=== PATIENT | female | born 1950 | race Caucasian/White ===

== ENCOUNTER 2020-01-26 14:49 | Emergency (ER) | payer MEDICARE, OTHER ==
[~2020-01-26] VITALS: Ht 165.1 cm; Wt 58.1 kg
--- NOTE | 2020-01-26 14:54 | ED Syncope ---
General Stated Complaint: SYNCOPE; HEAD INJ Source of Information: Patient Exam Limitations: No Limitations History of Present Illness Date Seen by Provider: Jan 26, 2020 Time Seen by Provider: 14:53 Initial Comments 69 y/o female presents w an episode of passing out today, fell and hit back of her head. Patient states she was doing her hair around 2 o'clock, with her hands raised over her head and she started to feel lightheaded and had some visual changes. She remembers leaning forward to get it to stop but then the next thing she remembers she was awaking on the floor with her head hurting. He denied any preceding chest pain, palpitations, rapid or irregular heartbeat. Denies any preceding shortness of air, his feeling of lightheadedness. Intermittent light headedness has been occurring for several months. Worse w exertional activity, she is actually modified her exercise routine. Patient has seen her primary care physician who ordered a stress thallium test which was resulted as normal recently. She was done at [facility] Current Symptoms: No Blurred Vision, No Chest Pain, No Diaphoresis, No Dizziness; Headache, Injury; No Motionless, No Nausea, No Pale, No Shallow/Rapid Breathing, No Weak/Absent Pulse; Weakness Allergies and Home Medications Allergies Coded Allergies: erythromycin base (Unverified Adverse Reaction, Mild, hives, 01/26/20) Home Medications Alendronate Sodium 70 Mg Tablet, 70 MG PO WEEK, (Reported) Patient Home Medication List Home Medication List Reviewed: Yes Review of Systems Constitutional: No chills; dizziness; No fever; malaise; No weakness EENTM: blurred vision (prior to syncopal episode) Respiratory: No cough, No short of breath Cardiovascular: No chest pain, No edema, No palpitations; syncope; No vascular heart diseas Gastrointestinal: No abdominal pain, No constipation, No diarrhea, No nausea, No vomiting Genitourinary: No dysuria, No frequency, No hematuria Musculoskeletal: back pain; No joint pain, No neck pain Skin: No change in color, No lesions; lumps (back of head) Psychiatric/Neurological: Headache; Denies Numbness, Denies Paresthesia, Denies Pre-Existing Deficit, Denies Seizure, Denies Tingling, Denies Tremors, Denies Weakness Past Lzljizn-Ixzles-Xjfyll Hx Past Med/Social Hx: Reviewed Nursing Past Med/Soc Hx Physical Exam Vital Signs Vital Signs - First Documented 01/26/20 14:55 Temp 36.1 Pulse 74 Resp 16 B/P (MAP) 172/68 (102) Pulse Ox 99 O2 Delivery Room Air Capillary Refill : Height, Weight, BMI Height: '" Weight: lbs. oz. kg; BMI Method: General Appearance: No Apparent Distress, WD/WN HEENT: PERRL/EOMI, Normal ENT Inspection, Pharynx Normal, Other (large hematoma occiput) Neck: Full Range of Motion, Normal Inspection, Non Tender, Supple Cardiovascular: Regular Rate, Rhythm, No Edema, No Gallop Respiratory: Chest Non Tender, Lungs Clear, Normal Breath Sounds Gastrointestinal: Normal Bowel Sounds, No Pulsatile Mass, Non Tender, Soft Back: Normal Inspection, No CVA Tenderness, No Vertebral Tenderness, Other (tenderness soft tissue- thoracic paraspinal and post ribs (5-10). NO pain w lateral rib compression, no scapular, shoulder or AC tenderness) Progress/Results/Core Measures Results/Orders Lab Results Laboratory Tests Test 01/26/20 15:15 01/26/20 15:25 Range/Units White Blood Count 7.6 4.3-11.0 10^3/uL Red Blood Count 4.33 L 4.35-5.85 10^6/uL Hemoglobin 12.0 11.5-16.0 G/DL Hematocrit 36 35-52 % Mean Corpuscular Volume 84 80-99 FL Mean Corpuscular Hemoglobin 28 25-34 PG Mean Corpuscular Hemoglobin Concent 33 32-36 G/DL Red Cell Distribution Width 13.6 10.0-14.5 % Platelet Count 232 130-400 10^3/uL Mean Platelet Volume 10.6 H 7.4-10.4 FL Neutrophils (%) (Auto) 67 42-75 % Lymphocytes (%) (Auto) 21 12-44 % Monocytes (%) (Auto) 10 0-12 % Eosinophils (%) (Auto) 2 0-10 % Basophils (%) (Auto) 0 0-10 % Neutrophils # (Auto) 5.1 1.8-7.8 X 10^3 Lymphocytes # (Auto) 1.6 1.0-4.0 X 10^3 Monocytes # (Auto) 0.8 0.0-1.0 X 10^3 Eosinophils # (Auto) 0.1 0.0-0.3 10^3/uL Basophils # (Auto) 0.0 0.0-0.1 10^3/uL Sodium Level 138 135-145 MMOL/L Potassium Level 4.0 3.6-5.0 MMOL/L Chloride Level 102 98-107 MMOL/L Carbon Dioxide Level 26 21-32 MMOL/L Anion Gap 10 5-14 MMOL/L Blood Urea Nitrogen 22 H 7-18 MG/DL Creatinine 0.84 0.60-1.30 MG/DL Estimat Glomerular Filtration Rate > 60 BUN/Creatinine Ratio 26 Glucose Level 159 H 70-105 MG/DL Calcium Level 9.7 8.5-10.1 MG/DL Corrected Calcium 9.4 8.5-10.1 MG/DL Total Bilirubin 0.4 0.1-1.0 MG/DL Aspartate Amino Transf (AST/SGOT) 73 H 5-34 U/L Alanine Aminotransferase (ALT/SGPT) 112 H 0-55 U/L Alkaline Phosphatase 61 40-136 U/L Troponin I < 0.30 <0.30 NG/ML Total Protein 6.5 6.4-8.2 GM/DL Albumin 4.4 3.2-4.5 GM/DL Urine Color YELLOW Urine Clarity CLEAR Urine pH 6.5 5-9 Urine Specific [place] 1.015 L 1.016-1.022 Urine Protein NEGATIVE NEGATIVE Urine Glucose (UA) NEGATIVE NEGATIVE Urine Ketones NEGATIVE NEGATIVE Urine Nitrite NEGATIVE NEGATIVE Urine Bilirubin NEGATIVE NEGATIVE Urine Urobilinogen 0.2 < = 1.0 MG/DL Urine Leukocyte Esterase NEGATIVE NEGATIVE Urine RBC (Auto) NEGATIVE NEGATIVE Urine RBC 0-2 /HPF Urine WBC 0-2 /HPF Urine Squamous Epithelial Cells 0-2 /HPF Urine Crystals NONE /LPF Urine Bacteria NEGATIVE /HPF Urine Casts NONE /LPF Urine Mucus NEGATIVE /LPF Urine Culture Indicated NO My Orders Orders - ROVENSTINE,EDNA L DO Ed Iv/Invasive Line Start (01/26/20 14:54) Ekg Tracing (01/26/20 14:54) Cbc With Automated Diff (01/26/20 14:54) Comprehensive Metabolic Panel (01/26/20 14:54) Troponin I Fs (01/26/20 14:54) Urinalysis (01/26/20 14:54) Ct Head Wo (01/26/20 15:06) Vital Signs/I&O 01/26/20 14:55 Temp 36.1 Pulse 74 Resp 16 B/P (MAP) 172/68 (102) Pulse Ox 99 O2 Delivery Room Air Progress Progress Note : Progress Note Uneventful ER stay, no episodes of dizziness, lightheadedness or syncope. Normal vital signs and observation period while On telemetry.... Patient remained asymptomatic. Review of labs and CT, all within normal limits other than slight elevation of liver enzymes. Discussed and advised follow-up cardi ology for further cardiac workup as patient does have old ant septal ischemic change on her EKG (this was not mentioned to her). She does agree and express understanding of the importance of follow-up Initial ECG Impression Time: 15:00 Initial ECG Rate: 60 Initial ECG Rhythm: Normal Sinus Initial ECG Intervals: Normal Initial ECG Impression: Normal Initial ECG Comparisson: No Previous ECG Available Comment old ant. septal infarct Departure Impression Primary Impression: Syncope Qualified Codes: R55 - Syncope and collapse Disposition: 01 HOME, SELF-CARE Condition: Stable Departure-Patient Inst. Decision time for Depature: 16:09 Referrals: JARED HYATT MD FACP FACC CCDS Patient Instructions: Syncope (Fainting) (DC) Add. Discharge Instructions: Call Dr Hyatt (Cryptoanalysis Teacher) to arrange for a follow up evaluation regarding your light headed episodes that are affecting your daily activity (as well as today's episode of passing out) It is advised that you make a follow up appointment in 1 week. EDNA LÓPEZ DO Jan 26, 2020 14:53
[2020-01-26] MEDS ORDERED: Fish Oil (15:23)
[2020-01-26] MEDS ORDERED: Probiotic (15:23)
[2020-01-26] MEDS ORDERED: ALEN70TA5 PO (15:23)
[2020-01-26] MEDS ORDERED: Occuvite (15:23)
[2020-01-26] MEDS ORDERED: Multivitamin (15:23)
[2020-01-26] MEDS ORDERED: Calcium (15:23)
[2020-01-26 15:30] VITALS: BP 156/69
[2020-01-26 15:32] LABS: HEMATOCRIT 36 % (35-52); MEAN CORPUSCULAR HEMOGLOBIN 28 PG (25-34); MEAN CORPUSCULAR VOLUME 84 FL (80-99); WHITE BLOOD COUNT 7.6 10^3/uL (4.3-11.0)
[2020-01-26 15:33] LABS: BASOPHILS % (AUTO) 0 % (0-10); EOSINOPHILS # (AUTO) 0.1 10^3/uL (0.0-0.3); EOSINOPHILS % (AUTO) 2 % (0-10); LYMPHOCYTES # (AUTO) 1.6 X 10^3 (1.0-4.0); LYMPHOCYTES % (AUTO) 21 % (12-44); MEAN CORPUSCULAR HGB CONC 33 G/DL (32-36); MEAN PLATELET VOLUME 10.6 FL (7.4-10.4); MONOCYTES # (AUTO) 0.8 X 10^3 (0.0-1.0); MONOCYTES % (AUTO) 10 % (0-12); NEUTROPHILS # (AUTO) 5.1 X 10^3 (1.8-7.8); NEUTROPHILS % (AUTO) 67 % (42-75); PLATELET COUNT 232 10^3/uL (130-400); RED CELL DISTRIBUTION WIDTH 13.6 % (10.0-14.5)
[2020-01-26 15:56] LABS: CARBON DIOXIDE 26 MMOL/L (21-32); CHLORIDE 102 MMOL/L (98-107); SODIUM 138 MMOL/L (135-145)
[2020-01-26 15:57] LABS: ALANINE AMINOTRANSFERASE 112 U/L (0-55); ALBUMIN 4.4 GM/DL (3.2-4.5); ALKALINE PHOSPHATASE 61 U/L (40-136); BILIRUBIN,TOTAL 0.4 MG/DL (0.1-1.0); BUN/CREATININE RATIO 26; CALCIUM 9.7 MG/DL (8.5-10.1); CREATININE SERUM 0.84 MG/DL (0.60-1.30); GFR ESTIMATED > 60; GLUCOSE 159 MG/DL (70-105); TOTAL PROTEIN 6.5 GM/DL (6.4-8.2)
[2020-01-26 16:00] VITALS: BP 145/64
[2020-01-26 16:02] LABS: CLARITY,URINE CLEAR; COLOR,URINE YELLOW; GLUCOSE, URINE (UA) NEGATIVE (NEGATIVE); KETONES,URINE NEGATIVE (NEGATIVE); NITRITE,URINE NEGATIVE (NEGATIVE); PH,URINE 6.5 (5-9); PROTEIN,URINE NEGATIVE (NEGATIVE)
[2020-01-26 16:03] LABS: BACTERIA,URINE NEGATIVE /HPF; BILIRUBIN,URINE NEGATIVE (NEGATIVE); LEUKOCYTE ESTERASE ,URINE NEGATIVE (NEGATIVE); RBC,URINE 0-2 /HPF; SQUAMOUS EPITHELIAL CELL,UR 0-2 /HPF; WBC,URINE 0-2 /HPF
--- NOTE | 2020-01-26 16:04 | Diagnostic Imaging Report ---
PROCEDURE: CT head without contrast. TECHNIQUE: Multiple contiguous axial images were obtained through the brain without the use of intravenous contrast. Auto Exposure Controls were utilized during the CT exam to meet ALARA standards for radiation dose reduction. INDICATION: Syncopal episode. COMPARISON: I have no relevant comparison. FINDINGS: Left posterior parieto-occipital scalp hematoma is noted. No underlying calvarial fracture deformity, however the mastoid air cells and middle ear cavities are clear and the paranasal sinuses revealed no blood. There is a left maxillary mucous retention cyst, chronic. There is no hydrocephalus, edema, mass, or mass effect. No evidence for elevation of the intracranial pressures and there are no abnormal extra-axial fluid collections. No findings of hemorrhage. IMPRESSION: Scalp injury on the left posteriorly, no apparent underlying fracture deformity or appreciable intracerebral hemorrhage. Dictated by: Dictated on workstation # [id number]
--- NOTE | 2020-01-26 16:25 | NUR ---
Pt's resting heart rate from [id number] is noted Sinus Bradycardia 57-59 without ectopy.
[2020-01-26 16:30] VITALS: BP 160/72
--- NOTE | 2020-01-26 16:30 | NUR ---
Upon pt discharge from room went to her car to update to pull up closer if he'd like as she is discharing and looks fine but should see a cryptographic machine operator and begin an OP work up for this continued c/o since October. Mr Zarate states they will consult with Dr Lopez tomorrow regarding request to see if in agreeance. Again reiterated discharge discussion by Dr Cohn with patient that a account development specialist is to further follow for these sx.
--- OUTSIDE RECORDS SUMMARY | 2020-01-26 16:45 | XMS REPORT | Continuity of Care Document ---
Author Organization Unknown Address Unknown Phone Unavailable Allergies There is no data. Medications There is no data. Problems There is no data. Procedures There is no data. Results There is no data. Encounters ACCT No. Visit Date/Time Discharge Status Pt. Type Provider Facility Loc./Unit Complaint [id number] 05/11/2019 09:30:00 05/11/2019 23:59: 59 CLS Outpatient [facility] [id number] 01/26/2020 14:51:[address] Emergency EDNA LÓPEZ DO [facility] ER FS SYNCOPE; HEAD INJ
--- NOTE | 2020-01-27 09:13 | NUR ---
PT NEEDED RECORDS FOR HER INORGANIC CHEMISTRY PROFESSOR APPT.
== END 2020-01-26 16:30 | disposition home or self-care (01) ==
LOC: ER FS 14:51
DX: R55 Syncope and collapse (principal); Z88.1 Allergy status to other antibiotic agents
CPT/HCPCS: 36415; 70450; 80053; 81000; 84484; 85025

== ENCOUNTER → 2022-07-06 | Outpatient (CLI) | payer MEDICARE, OTHER ==
[~2022-07-06] VITALS: Ht 165 cm; Wt 59.0 kg
[~2022-07-06] MED LIST: ALEN70TA80 PO; CATHETER FLUSH 10 ML SYR IVP PRN; CEPH-507 PO; Calcium; Fish Oil; Multivitamin; Occuvite; Probiotic; REGADENOSON 0.4 MG/5 ML SYR (LEXISCAN) IV ONE
[2022-07-06 09:03] VITALS: BP 169/98
== END ==
LOC: CARD 08:00
PROVIDERS: ATTEND Internal Medicine Cardiovascular Disease
DX: I25.10 Atherosclerotic heart disease of native coronary artery without angina pectoris (principal)
CPT/HCPCS: 78452; 93017; A9502

== ENCOUNTER → 2023-02-18 | Outpatient (CLI) | payer MEDICARE, OTHER ==
[~2023-02-18] MED LIST changes: -CATHETER FLUSH 10 ML SYR IVP PRN; -REGADENOSON 0.4 MG/5 ML SYR (LEXISCAN) IV ONE
== END ==
LOC: CARD 07:56
PROVIDERS: ATTEND Nurse Practitioner Family
DX: I34.0 Nonrheumatic mitral (valve) insufficiency (principal)
CPT/HCPCS: 93306